=== PATIENT | male | born 1970 | race Caucasian/White ===

== ENCOUNTER → 2017-07-22 | Outpatient (CLI) | payer MEDICARE ==
[~2017-07-22] MED LIST: REGADENOSON 0.4 MG/5 ML SYRINGE IV ONE
--- NOTE | 2017-07-22 12:04 | EST ---
EXERCISE STRESS DATE OF SERVICE: 07/22/2017 AGE: 47 SEX: Male HT: 6'5" WT: 265 pounds PROTOCOL: Lexiscan Cardiolite STAGE: DURATION OF EXERCISE: HEART RATE REST: 77 BLOOD PRESSURE REST: 131/77 MAXIMUM HEART RATE ACHIEVED: 94 MAXIMUM BLOOD PRESSURE: 143/85 85% MPHR: 145 100% MPHR: 171 METS: INDICATIONS: Chest pain. CLINICAL INFORMATION: Baseline heart rate 77 beats per minute. Baseline blood pressure 131/77 mmHg. Baseline 12-lead ECG showed normal sinus rhythm with normal cardiac intervals. Patient received Lexiscan infusion per protocol. There was no ECG evidence for ischemia. No arrhythmias were noted. Nuclear portion of the stress test will be reported separately. Heart rate and blood pressure response was normal. No symptoms were noted. MMODL / IJN: [id number] /
--- NOTE | 2017-07-22 12:16 | NM ---
EXAMINATION TYPE: NM stress lexiscan cardiolite DATE OF EXAM: 07/22/2017 COMPARISON: NONE HISTORY: I20.9 Angina,Abnormal EKG R94.31 TECHNIQUE: After the intravenous administration of 10.58 mCi Tc 99m Sestamibi - Cardiolite resting S PECT images acquired 45 minutes post injection. The patient received 0.4mg Lexiscan, 26.2 mCi Tc 99m Sestamibi - Stress images obtained [address] injection FINDINGS: Review of stress and rest SPECT images demonstrates no distinct perfusion abnormality. Gated analysi s shows normal wall motion with an estimated left ventricular ejection fraction of 63 %. IMPRESSION: No scintigraphic evidence for reversible ischemia.
== END | disposition home or self-care (01) ==
LOC: RADNMMAIN 08:19
PROVIDERS: ATTEND Family Medicine
DX: I20.9 Angina pectoris, unspecified (principal); R94.31 Abnormal electrocardiogram [ECG] [EKG]; Z88.5 Allergy status to narcotic agent; Z91.02 Food additives allergy status
CPT/HCPCS: 93017; 78452; A9500; J2785

== ENCOUNTER 2020-10-16 07:54 | Day surgery (SDC) | payer MEDICARE ==
[2020-10-14 11:11] VITALS: BMI 32.2
[~2020-10-16 07:54] MED LIST changes: +LACTATED RINGERS 1,000 ML IV SCH; +LIDOCAINE 1% (10MG/ML) FOR IV START INTRADERMA PRN; -REGADENOSON 0.4 MG/5 ML SYRINGE IV ONE
[2020-10-16] MEDS ORDERED: LACTATED RINGERS 1,000 ML IV ONE (08:45)
[2020-10-16 08:48] VITALS: RESP 16; TEMP 96.1
[2020-10-16] MEDS ORDERED: LIDOCAINE 1% INJ 10MG/ML (20 ML MDV) ONE (08:52)
[2020-10-16] MEDS ORDERED: PROPOFOL 10 MG/ML 20 ML VIAL IV ONE (08:52)
--- NOTE | 2020-10-16 08:53 | P.GSHP ---
History of Present Illness H&P Date: 10/16/20 Chief Complaint: Screening colonoscopy This 50-year-old male has today for screening colonoscopy. He denies any GI complaints. Past Medical History Past Medical History: Osteoarthritis (OA), Sleep Apnea/CPAP/BIPAP History of Any Multi-Drug Resistant Organisms: None Reported Past Surgical History: Back Surgery Additional Past Surgical History / Comment(s): LAMINECTOMY-ANTERIOR AND POSTERIOR , LEFT EAR SURGERY X 3, Past Anesthesia/Blood Transfusion Reactions: No Reported Reaction, Motion Sickness Smoking Status: Current every day smoker - Past Family History Mother Family Medical History: Cancer Additional Family Medical History / Comment(s): LUNG CANCER Medications and Allergies Home Medications Medication Instructions Recorded Confirmed Type Meclizine [Antivert] 25 mg PO TID PRN 10/14/20 10/14/20 History oxyCODONE-APAP 10-325MG [Percocet 1 tab PO Q8HR PRN 10/14/20 10/14/20 History 10-325 mg] Allergies Allergy/AdvReac Type Severity Reaction Status Date / Time morphine Allergy Vomiting Unverified 10/14/20 10:48 Surgical - Exam Vital Signs Temp Pulse Resp BP Pulse Ox 96.1 F L 97 16 156/93 97 10/16/20 08:45 10/16/20 08:45 10/16/20 08:45 10/16/20 08:45 10/16/20 08:45 - General well developed, well nourished, no distress - Eyes PERRL - ENT normal pinna - Neck no masses - Respiratory normal expansion - Cardiovascular Rhythm: regular - Abdomen Abdomen: soft, non tender Assessment and Plan Assessment: We'll perform screening colonoscopy
--- NOTE | 2020-10-16 09:04 | P.OP ---
Date of Procedure: 10/16/20 Preoperative Diagnosis: Screening colonoscopy Postoperative Diagnosis: Poor prep Normal colonoscopy transverse colon Procedure(s) Performed: Colonoscopy Anesthesia: MAC Surgeon: Thomas Ulrich Pathology: none sent Condition: stable Disposition: PACU Description of Procedure: Patient's placed on the endoscopy table in the lateral position. He received IV sedation. Digital rectal exam was performed which revealed stool in the exam finger. The flexible colonoscope was then placed patient anus and passed throughout the colon. The scope was passed beyond the transverse colon secondary to poor prep. There is a large amount stool in the colon. This limited view mucosa. Scope was withdrawn. The distal transverse colon descending colon and sigmoid colon and rectum appeared normal however there was a large amount stool which limited the view mucosa. The scope was withdrawn for patient.
[2020-10-16 09:28] VITALS: BP 145/88; PULSE 86
== END 2020-10-16 09:41 | disposition home or self-care (01) ==
LOC: ORWHC2ENDO 07:54
PROVIDERS: ATTEND Surgery
DX: Z12.11 Encounter for screening for malignant neoplasm of colon (principal); G47.33 Obstructive sleep apnea (adult) (pediatric); M51.37 Other intervertebral disc degeneration, lumbosacral region; F11.20 Opioid dependence, uncomplicated; L40.9 Psoriasis, unspecified; F12.10 Cannabis abuse, uncomplicated; F17.200 Nicotine dependence, unspecified, uncomplicated; H91.10 Presbycusis, unspecified ear; F41.0 Panic disorder [episodic paroxysmal anxiety]; Z80.1 Family history of malignant neoplasm of trachea, bronchus and lung; Z88.5 Allergy status to narcotic agent
CPT/HCPCS: 45378; J2001; J2704

== ENCOUNTER 2020-10-20 11:07 | Emergency (ER) | payer MEDICARE ==
[2020-10-20 11:23] VITALS: BP 126/76; PULSE 107; RESP 18; TEMP 97.5
[2020-10-20] MEDS ORDERED: KETOROLAC 15 MG/ML 1 ML VIAL IM STA (11:51)
--- NOTE | 2020-10-20 12:24 | XR ---
EXAMINATION TYPE: XR knee complete LT DATE OF EXAM: 10/20/2020 COMPARISON: NONE HISTORY: Fall. Pain. TECHNIQUE: AP, lateral, and oblique views of the left knee obtained. FINDINGS: No acute fracture. No dislocation. Joint spaces and alignment are normal. Normal mineraliza tion. Moderate suprapatellar joint effusion. IMPRESSION: Suprapatellar joint effusion. No acute fracture or dislocation.
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
== END 2020-10-20 13:37 | disposition home or self-care (01) ==
LOC: EC 11:07
DX: M25.462 Effusion, left knee (principal); M19.90 Unspecified osteoarthritis, unspecified site; G47.33 Obstructive sleep apnea (adult) (pediatric); Z99.81 Dependence on supplemental oxygen; F17.200 Nicotine dependence, unspecified, uncomplicated; F12.90 Cannabis use, unspecified, uncomplicated; W10.9XXA Fall (on) (from) unspecified stairs and steps, initial encounter
CPT/HCPCS: 73562; 99283; 96372; J1885